=== PATIENT | female | born 1995 | race Caucasian/White ===

== ENCOUNTER 2024-04-03 08:07 | Outpatient (AMB) | payer OTHER, SELFPAY ==
--- NOTE | 2024-04-03 07:57 | MHC.PC.OV ---
Vital Signs 04/03/24 08:19 Height 5 ft 2 in Weight 119 lb 6 oz BMI 21.8 BP 98/64 Blood Pressure Location Rt brachial Position Sitting Respiration 12 Pulse 83 Pulse Source Pulse Oximeter Temp 97.9 F Temp Source Oral Pulse Oximetry (%) 98 Oxygen Delivery Method Room Air Intake Visit Reasons: Establish Care transfer from [facility] Intake Note: New patient visit. Refill on valacyclorvir. Also wants to discuss medication to help focus. Test Lab Technician Required: No Allergies No Known Allergies Allergy (Verified 04/03/24 08:15) Medication List - Last Reconciled 04/03/24 by Blanca Jean Baptiste PA-C lorazepam 1 mg PO DAILY PRN valacyclovir 1,000 mg PO BID Tobacco use date assessed: 04/03/24 Dental Screening Dental Screen Date: 04/03/24 Did you have a dental visit in the last 12 months?: Yes Did you have a dental problem in the last 6 months where you did not have access to dental care?: No Was dental information given to patient?: Patient has dentist HPI Establish Care transfer from [facility] HPI Details Patient is a 29-year-old female with a significant past medical history of cold sores, situational anxiety and ADD presenting today to follow up. She is transferring from [facility]. She was last seen by myself about 6 months ago. Psych: States that she has a history of ADD and was diagnosed in childhood but never tried anything consistently. She states that at 1 point in college she was on Adderall extended release and that was helpful. She states that while she is currently going through her wedding planning and her hectic job she thinks that she would benefit from going back on Adderall. She states that she is getting next year and then would plan to come off of this again. 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 She does get a couple of prescriptions of the lorazepam a year for airplane travel. Her job causes her to travel all over the country. Requests a refill on Valtrex today for her cold sores. 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 1. Little interest or pleasure in doing things: not at all 2. Feeling down, depressed, or hopeless: not at all 3. Trouble falling or staying asleep, or sleeping too much: not at all 4. Feeling tired or having little energy: not at all 5. Poor appetite or overeating: not at all 6. Feeling bad about yourself - or that you are a failure or have let yourself or your family down: not at all 7. Trouble concentrating on things, such as reading the newspaper or watching television: several days 8. Moving or speaking so slowly that other people could have noticed. Or the opposite - being so fidgety or restless that you have been moving around a lot more than usual: not at all 9. Thoughts that you would be better off or of hurting yourself in some way: not at all Total score: 1 Depression Screening Interpretation: Negative Depression Screening Done: Yes 02845 - PHQ-9 Billing: Yes Source: Developed by Drs. Caleb Shipman, Shayna Ochoa, Adrian Nath and colleagues, with an educational carolyn from [employer]. Thrive Questionnaire Date Thrive assessed: 04/03/24 I am a: Patient What is your living situation today?: I have a steady place to live Within the past 12 months, did the food you bought not last and you didn't have the money to get more?: Never true Within the past 12 months, did you worry whether your food would run out before you got money to buy more?: Never true Do you have trouble paying for medicines?: No Do you have trouble getting transportation to medical appointments?: No Do you have trouble paying your heating and electricity bill?: No Do you have trouble taking care of your child, family member or friend?: No Do you have trouble with day-to-day activities such as bathing, preparing meals, shopping, managing finances, etc.?: No Are you currently unemployed and looking for a job?: No Are you interested in more education?: No Please select the resources that you would like help with: None Currently or been in a relationship where the following occur: no concerns reported THRIVE Score: 0 AUDIT C Alcohol Use Questionnaire (AUDIT-C) 1. How often do you have a drink containing alcohol?: 2-4 times a month 2. How many drinks containing alcohol do you have on a typical day when you are drinking?: 1 or 2 3. How often do you have six or more drinks on one occasion?: Never Total Score: 2 AIDA-7 AMB Questionnaire AIDA-7 Date AIDA - 7 assessed: 04/03/24 Feeling nervous, anxious, or on edge: 1 = Several days Not being able to stop or control worryin = Several days Worrying too much about different things: 1 = Several days Trouble relaxin = Several days Being so restless that it is hard to sit still: 0 = Not at all Becoming easily annoyed or irritable: 1 = Several days Feeling afraid as if something awful might happen: 1 = Several days Total AIDA-7 score (0-4 normal; 5-9 mild; 10-14 moderate; 15-21 severe): 6 Source: Developed by Drs. Caleb Shipman, Shayna Ochoa, Adrian Nath and colleagues, with an educational carolyn from [employer]. AIDA-7 Assessment Billing AIDA-7 Assessment Tool: AIDA-7 Assessment 73451 Physical exam (Primary Care) Vital Signs: Last Vital Signs Temp 97.9 F 04/03/24 08:19 Pulse 83 04/03/24 08:19 Resp 12 04/03/24 08:19 BP 98/64 04/03/24 08:19 Pulse Ox 98 04/03/24 08:19 Oxygen Delivery Method Room Air 04/03/24 08:19 BMI result Body Mass Index 21.8 Tobacco/Smoking Status: Tobacco use Status Tobacco use date assessed 04/03/24 04/03/24 07:58 Patient Tobacco Use Status Never used Tobacco 04/03/24 08:23 e-Cigarette/Vaping Use Never Used 04/03/24 08:23 PHQ-9: PHQ-9 Score PHQ-9: Total score 1 04/03/24 08:23 Depression Screening Interpretation: Negative Thrive Assessment: Date of Thrive Assessment Date Thrive assessed 04/03/24 04/03/24 08:23 Currently or been in a relationship where the following occur: no concerns reported Const Orientation/consciousness: patient oriented x3 HENMT Ears: hearing grossly normal bilaterally Neck Thyroid: Thyroid normal Lymphatic: no lymphadenopathy noted Resp Auscultation: clear to auscultation bilaterally Cardio Rate: regular rate Rhythm: regular rhythm Heart sounds: S1 normal heart sound present and S2 normal heart sound present GI Inspection: Yes normal to inspection Palpation (GI): Soft to palpation and Other GI palpation findings present (nontender, no cva tenderness) Auscultation: normoactive bowel sounds Rectal Exam - Female: deferred Skin General skin exam: no rashes or lesions noted Neuro General: patient oriented x3, gait normal and no focal motor deficits Assessment and Plan Assessment & Plan (1) Attention deficit disorder (ADD) in adult: Code(s): F98.8 - Other specified behavioral and emotional disorders with onset usually occurring in childhood and adolescence Plan: We will restart Adderall 10 mg XR. I will have her return in 1 month to be re-evaluated. We did discuss risks and benefits and adverse effects of this medication including palpitations, weight changes, addiction, dependence, and insomnia etc.. (2) Panic attacks: Code(s): F41.0 - Panic disorder [episodic paroxysmal anxiety] Plan: Does not currently need a refill of lorazepam. Last received this about 6 months ago. Plan Reports not having labs for over a year. Labs ordered today. We will follow up pending test results. Patient understands and agrees with the plan. Orders: Orders Lipid Panel Today F41.0 - Panic disorder [episodic paroxysmal anxiety], F98.8 - Other specified behavioral and emotional disorders with onset usually occurring in childhood and adolescence Complete Blood Count Auto Diff Today F41.0 - Panic disorder [episodic paroxysmal anxiety], F98.8 - Other specified behavioral and emotional disorders with onset usually occurring in childhood and adolescence Comprehensive Met. Panel Today F41.0 - Panic disorder [episodic paroxysmal anxiety], F98.8 - Other specified behavioral and emotional disorders with onset usually occurring in childhood and adolescence TSH reflex Free T4 Today F41.0 - Panic disorder [episodic paroxysmal anxiety], F98.8 - Other specified behavioral and emotional disorders with onset usually occurring in childhood and adolescence Vitamin B12 and Folate Today F41.0 - Panic disorder [episodic paroxysmal anxiety], F98.8 - Other specified behavioral and emotional disorders with onset usually occurring in childhood and adolescence Medications: New valacyclovir 2,000 mg (2 x 1 gram) PO BID 1 day PRN 30 tabs 3RF outbreak dextroamphetamine-amphetamine 10 mg ER (Adderall XR) Partial Fill upon patient request. 10 mg PO QAM 28 days 28 caps 0RF Coding Level of Care Code Est Pt Level 4 (89224) Complex EM visit Add On G2211 Diagnoses Attention deficit disorder (ADD) in adult F98.8 Panic attacks F41.0 Additional Codes AIDA-7 Assessment Billing - AIDA-7 Assessment Tool: AIDA-7 Assessment 81544 ([id number])
[2024-04-03 08:19] VITALS: BP 98/64; PULSE 83; RESP 12; TEMP 36.6; O2SAT 98; BMI 21.8
== END 2024-04-03 10:12 | disposition home or self-care (01) ==
PROVIDERS: PCP Physician Assistant; Visit Provider Physician Assistant
DX: F98.8 Other specified behavioral and emotional disorders with onset usually occurring in childhood and adolescence (principal); F41.0 Panic disorder [episodic paroxysmal anxiety]
CPT/HCPCS: 99214; G2211

== ENCOUNTER 2024-07-30 10:06 | Outpatient (AMB) | payer OTHER, SELFPAY ==
--- NOTE | 2024-07-30 10:11 | A.OFFPC_ITS ---
Vital Signs 07/30/24 10:12 Height 5 ft 2 in Weight 110 lb 8 oz BMI 20.2 BP 98/82 Blood Pressure Location Rt brachial Position Sitting Respiration 12 Pulse 92 Pulse Source Pulse Oximeter Temp 97.7 F Temp Source Oral Pulse Oximetry (%) 99 Oxygen Delivery Method Room Air Intake Visit Reasons: black specks on flem Intake Note: Phlegm with black specs that have been ongoing for about a year. Allergies No Known Allergies Allergy (Verified 07/30/24 10:12) Medication List - Last Reconciled 07/30/24 by Blanca Jean Baptsite PA-C lorazepam 1 mg PO DAILY PRN valacyclovir 2,000 mg (2 x 1 gram) PO BID PRN 1 day Tobacco use date assessed: 04/03/24 Dental Screening Dental Screen Date: 04/03/24 HPI black specks on flem HPI Details Patient is a 29-year-old female who presents today with a few complaints. -she has noticed constant postnasal drip for the past year, worse in the last few months feels like she is clearing her throat a lot. Recently she is cleari ng her throat and felt like she had some black flecks in her phlegm. She states that it almost looked like mosquito. No bloody nose, sinus pain or pressure. No fevers or chills. She states that she is not coughing denies any shortness on breath, fevers or chills. She has noticed some lymphadenopathy in her neck that has been going on for the past year and she states that it has been on and off but in the last few months it has been more persistent. The right side is worse than the left. She does at times have a sore throat and feels like there is something there when she swallows. At times she does also endorse some heartburn with this. She has also noticed that she has been belching a lot over the last couple of months. She did try omeprazole for 7 days and that was helpful for some of the belching. It then returned. She tries to be careful with her diet. No pain with eating. No nausea, vomiting, diarrhea or constipation. -she does endorse weight loss but attrib utes this to Adderall. -she denies any night sweats, fatigue, a bdominal pain or weakness. -a few months ago she was started on Add erall as she took this in the past for her ADD but has noticed a decrease in her weight. She states that when she takes Adderall she just does not want to eat. She is wondering if we can switch to the short-acting because it is very helpful for presentations, wedding lluvia nning, her stressful job. 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 1. Little interest or pleasure in doing things: not at all 2. Feeling down, depressed, or hopeless: not at all 3. Trouble falling or staying asleep, or sleeping too much: several days 4. Feeling tired or having little energy: not at all 5. Poor appetite or overeating: several days 6. Feeling bad about yourself - or that you are a failure or have let yourself or your family down: not at all 7. Trouble concentrating on things, such as reading the newspaper or watching television: not at all 8. Moving or speaking so slowly that other people could have noticed. Or the opposite - being so fidgety or restless that you have been moving around a lot more than usual: not at all 9. Thoughts that you would be better off or of hurting yourself in some way: not at all Total score: 2 Source: Developed by Drs. Caleb Shipman, Shayna Ochoa, Adrian Nath and colleagues, with an educational carolyn from [employer]. Thrive Questionnaire Date Thrive assessed: 04/03/24 I am a: Patient What is your living situation today?: I have a steady place to live Within the past 12 months, did the food you bought not last and you didn't have the money to get more?: Never true Within the past 12 months, did you worry whether your food would run out before you got money to buy more?: Never true Do you have trouble paying for medicines?: No Do you have trouble getting transportation to medical appointments?: No Do you have trouble paying your heating and electricity bill?: No Do you have trouble taking care of your child, family member or friend?: No Do you have trouble with day-to-day activities such as bathing, preparing meals, shopping, managing finances, etc.?: No Are you currently unemployed and looking for a job?: No Are you interested in more education?: No Please select the resources that you would like help with: None Currently or been in a relationship where the following occur: No concerns reported THRIVE Score: 0 AUDIT C Alcohol Use Questionnaire (AUDIT-C) 1. How often do you have a drink containing alcohol?: 2-3 times a week 2. How many drinks containing alcohol do you have on a typical day when you are drinking?: 3 or 4 3. How often do you have six or more drinks on one occasion?: Less than monthly Total Score: 5 AIDA-7 AMB Questionnaire AIDA-7 Date AIDA - 7 assessed: 04/03/24 Feeling nervous, anxious, or on edge: 2 = More than half the days Not being able to stop or control worryin = Several days Worrying too much about different things: 1 = Several days Trouble relaxin = Several days Being so restless that it is hard to sit still: 1 = Several days Becoming easily annoyed or irritable: 1 = Several days Feeling afraid as if something awful might happen: 1 = Several days Total AIDA-7 score (0-4 normal; 5-9 mild; 10-14 moderate; 15-21 severe): 8 Source: Developed by Drs. Caleb Shipman, Shayna Ochoa, Adrian Nath and colleagues, with an educational carolyn from [employer]. Physical exam (Primary Care) Vital Signs: Last Vital Signs Temp 97.7 F 07/30/24 10:12 Pulse 92 07/30/24 10:12 Resp 12 07/30/24 10:12 BP 98/82 07/30/24 10:12 Pulse Ox 99 07/30/24 10:12 Oxygen Delivery Method Room Air 07/30/24 10:12 BMI result Body Mass Index 20.2 Tobacco/Smoking Status: Tobacco use Status Tobacco use date assessed 04/03/24 07/30/24 10:16 Patient Tobacco Use Status Never used Tobacco 07/30/24 10:16 e-Cigarette/Vaping Use Never Used 07/30/24 10:16 PHQ-9: PHQ-9 Score PHQ-9: Total score 2 07/30/24 11:53 Thrive Assessment: Date of Thrive Assessment Date Thrive assessed 04/03/24 07/30/24 10:16 Currently or been in a relationship where the following occur: No concerns reported Const Orientation/consciousness: patient oriented x3 HENMT Ears: hearing grossly normal bilaterally Neck Thyroid: Thyroid normal Lymphatic: lymphadenopathy (cervical lymphadenopathy noted) Resp Auscultation: clear to auscultation bilaterally Cardio Rate: regular rate Rhythm: regular rhythm Heart sounds: S1 normal heart sound present and S2 normal heart sound present GI Inspection: Yes normal to inspection Palpation (GI): Soft to palpation and Other GI palpation findings present (nontender, no cva tenderness) Auscultation: normoactive bowel sounds Rectal Exam - Female: deferred Skin General skin exam: no rashes or lesions noted Neuro General: patient oriented x3, gait normal and no focal motor deficits Assessment and Plan Assessment & Plan (1) Persistent generalized lymphadenopathy: Code(s): R59.1 - Generalized enlarged lymph nodes Plan: Ultrasound and labs ordered. We will follow up pending test results. One-month follow-up. Sooner if needed. (2) PND (post-nasal drip): Code(s): R09.82 - Postnasal drip Plan: We will start Zyrtec. Discussed risks and benefits and adverse effects. (3) Globus sensation: Code(s): R09.A2 - Foreign body sensation, throat Plan: As above. H pylori test ordered as well. Pending test results we will start omeprazole. (4) Attention deficit disorder (ADD) in adult: Code(s): F98.8 - Other specified behavioral and emotional disorders with onset usually occurring in childhood and adolescence Plan: d/c Adderall XR. We will use 5 mg short-acting if needed. Short term follow up to recheck weight. Patient understands and agrees with this plan. Orders: Orders US soft tiss head and/or neck Today R09.82 - Postnasal drip, R59.1 - Generalized enlarged lymph nodes H pylori Ag Stool Today R09.82 - Postnasal drip, R09.A2 - Foreign body sensatio n, throat, R59.1 - Generalized enlarged lymph nodes Medications: New dextroamphetamine-amphetamine 5 mg (Adderall) administer doses at least 4-6 hours apart; Partial Fill upon patient request. 5 mg PO BID 30 days 60 tabs 0RF Coding Level of Care Code Est Pt Level 4 (57649) Complex EM visit Add On G2211 Diagnoses Persistent generalized lymphadenopathy R59.1 PND (post-nasal drip) R09.82 Globus sensation R09.A2 Attention deficit disorder (ADD) in adult F98.8
[2024-07-30 10:12] VITALS: BP 98/82; PULSE 92; RESP 12; TEMP 36.5; O2SAT 99; BMI 20.2
== END 2024-07-30 10:52 | disposition home or self-care (01) ==
PROVIDERS: PCP Physician Assistant; Visit Provider Physician Assistant
DX: R59.1 Generalized enlarged lymph nodes (principal); R09.82 Postnasal drip; R09.A2 Foreign body sensation, throat; F98.8 Other specified behavioral and emotional disorders with onset usually occurring in childhood and adolescence
CPT/HCPCS: 99214

== ENCOUNTER 2024-07-30 10:56 | Outpatient (REF) | payer OTHER, SELFPAY ==
[2024-07-30 14:22] LABS: MANUAL DIFF FLAG NO
[2024-07-30 14:24] LABS: Basophils Percent Auto 0.7 % (0-2); Eosinophils Percent Auto 0.5 % (0-4); Hematocrit 40.3 % (37.0-47.0); Hemoglobin 13.7 g/dl (12.0-16.0); Lymphocytes Absolute Auto 2.1 X10*3/uL (1.2-4.9); Lymphocytes Percent Auto 49.3 % (20-40); Mean Corpuscular Hemoglobin 32.5 pg (27.0-33.0); Mean Corpuscular Volume 95.7 fL (80.0-98.0); Mean Platelet Volume 9.8 fL (9.4-12.3); Monocytes Absolute Auto 0.4 X10*3/uL (0.1-1.2); Neutrophils Absolute Auto 1.7 x10*3/uL (2.0-8.3); Neutrophils Percent Auto 40.5 % (45-73); Platelet Count 299 X10*3/uL (160-400); Red Blood Count 4.21 X10*6/uL (4.20-5.50); Red Cell Distribution Width 12.3 % (11.0-16.0); White Blood Count 4.2 X10*3/uL (4.8-10.8)
[2024-07-30 15:23] LABS: Alanine Aminotransferase 13 U/L (0-31); Albumin Level 4.6 g/dL (3.5-5.0); Alkaline Phosphatase 52 U/L (39-117); Anion Gap 13 (12-20); Aspartate Amino Transferase 19 U/L (5-31); Bilirubin Total 0.9 mg/dL (0.0-1.0); Blood Urea Nitrogen 9 mg/dL (9-16); Carbon Dioxide 27 mmol/L (22-29); Chloride 103 mmol/L (96-108); Cholesterol 173 mg/dL (<200); Estimated Glomerular Filt Rate > 60; Glucose Random 93 mg/dL (60-115); HDL Cholesterol 87 mg/dL (>40); LDL Cholesterol Calculated 79 mg/dL (<100); Potassium 4.1 mmol/L (3.3-5.1); Sodium 139 mmol/L (135-145); Total Protein 7.7 g/dL (6.5-8.0); Triglycerides 35 mg/dL (<150)
[2024-07-30 15:25] LABS: TSH reflex Free T4 1.76 uIU/mL (0.32-4.0)
[2024-07-30 15:30] LABS: Folate 13.2 ng/mL (> or = 4.0); Vitamin B12 543 pg/mL (200-900)
== END 2024-07-30 10:57 | disposition home or self-care (01) ==
LOC: HO.WFDLDS 10:56
PROVIDERS: Visit Provider Physician Assistant
DX: F41.0 Panic disorder [episodic paroxysmal anxiety] (principal); F98.8 Other specified behavioral and emotional disorders with onset usually occurring in childhood and adolescence; R59.1 Generalized enlarged lymph nodes; R09.A2 Foreign body sensation, throat; R09.82 Postnasal drip
CPT/HCPCS: 36415; 80053; 80061; 82607; 82746; 84443; 85025; 87338

== ENCOUNTER 2024-09-03 15:44 | Outpatient (AMB) | payer OTHER, SELFPAY ==
--- NOTE | 2024-09-03 15:48 | A.OFFPC_ITS ---
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 Psych: At our last visit she was started on Adderall 5 mg twice a day. She states that she felt like the 5 mg is too ineffective so has been taking 10 mg twice a day which is effective but does seem to wear off quickly. She is wondering if we could go up on a little bit on this dosage. She was previously on the extended-release Adderall but that caused her to have difficulty eating. With the immediate release she has not had any issues. She is up 3 lb. 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 Current occupational exposures/hazards: No Cognitive needs: No Hearing needs: No Vision needs: No Questionnaire Thrive Questionnaire Date Thrive assessed: 07/30/24 I am a: Patient What is your living situation today?: I have a steady place to live Within the past 12 months, did the food you bought not last and you didn't have the money to get more?: Never true Within the past 12 months, did you worry whether your food would run out before you got money to buy more?: Never true Do you have trouble paying for medicines?: No Do you have trouble getting transportation to medical appointments?: No Do you have trouble paying your heating and electricity bill?: No Do you have trouble taking care of your child, family member or friend?: No Do you have trouble with day-to-day activities such as bathing, preparing meals, shopping, managing finances, etc.?: No Are you currently unemployed and looking for a job?: No Are you interested in more education?: No Please select the resources that you would like help with: None Currently or been in a relationship where the following occur: No concerns reported THRIVE Score: 0 AIDA-7 AMB Questionnaire AIDA-7 Date AIDA - 7 assessed: 04/03/24 Source: Developed by Drs. Caleb Shipman, Shayna Ochoa, Adrian Nath and colleagues, with an educational carolyn from [employer]. Physical exam (Primary Care) Vital Signs: Last Vital Signs Pulse 86 09/03/24 15:51 Resp 12 09/03/24 15:51 BP 108/58 L 09/03/24 15:51 Pulse Ox 99 09/03/24 15:51 Oxygen Delivery Method Room Air 09/03/24 15:51 BMI result Body Mass Index 20.7 Tobacco/Smoking Status: Tobacco use Status Tobacco use date assessed 04/03/24 09/03/24 15:49 Patient Tobacco Use Status Never used Tobacco 09/03/24 15:49 e-Cigarette/Vaping Use Never Used 09/03/24 15:49 Thrive Assessment: Date of Thrive Assessment Date Thrive assessed 07/30/24 09/03/24 15:49 Currently or been in a relationship where the following occur: No concerns reported Const Orientation/consciousness: patient oriented x3 HENMT Ears: hearing grossly normal bilaterally Neck Thyroid: Thyroid normal Lymphatic: no lymphadenopathy noted Resp Auscultation: clear to auscultation bilaterally Cardio Rate: regular rate Rhythm: regular rhythm Heart sounds: S1 normal heart sound present and S2 normal heart sound present GI Inspection: Yes normal to inspection Palpation (GI): Soft to palpation and Other GI palpation findings present (nonte nder, no cva tenderness) Auscultation: normoactive bowel sounds Rectal Exam - Female: deferred Skin General skin exam: no rashes or lesions noted Neuro General: patient oriented x3, gait normal and no focal motor deficits Results Reviewed Results Reviewed: Laboratory Tests 07/30/24 10:59 Sodium 139 Potassium 4.1 Chloride 103 Carbon Dioxide 27 Anion Gap 13 BUN 9 Creatinine 0.75 Estimated GFR > 60 Random Glucose 93 AST 19 ALT 13 Triglycerides 35 Cholesterol 173 LDL Cholesterol, Calc 79 HDL Cholesterol 87 Vitamin B12 543 Folate 13.2 TSH 1.76 Coding Level of Care Code Est Pt Level 3 (97598) Diagnoses Attention deficit disorder (ADD) in adult F98.8 Assessment & Plan Assessment & Plan (1) Attention deficit disorder (ADD) in adult: Code(s): F98.8 - Other specified behavioral and emotional disorders with onset usually occurring in childhood and adolescence Category: Medical Plan: We will try Adderall 12.5 mg twice a day. Advised short term follow up in 3-4 months. Sooner if needed. Patient understands and agrees with the plan. Medications: New dextroamphetamine-amphetamine 12.5 mg (Adderall) administer doses at least 4-6 hours apart; Partial Fill upon patient request. 12.5 mg PO BID 30 days 60 tabs 0RF
[2024-09-03 15:51] VITALS: BP 108/58; PULSE 86; RESP 12; O2SAT 99; BMI 20.7
== END 2024-09-03 17:00 | disposition home or self-care (01) ==
PROVIDERS: PCP Physician Assistant; Visit Provider Physician Assistant
DX: F98.8 Other specified behavioral and emotional disorders with onset usually occurring in childhood and adolescence (principal)

== ENCOUNTER → 2024-09-03 15:44 | Outpatient (BNVA) | payer OTHER, SELFPAY | PROVIDERS: PCP Physician Assistant; Visit Provider Physician Assistant ==

== ENCOUNTER 2025-05-14 13:10 | Outpatient (AMB) | payer OTHER, SELFPAY ==
--- NOTE | 2025-05-14 13:11 | MHC.PC.OV ---
Vital Signs 05/14/25 13:17 Height 5 ft 2 in Weight 111 lb BMI 20.3 BP 98/78 Blood Pressure Location Rt brachial Position Sitting Respiration 12 Pulse 78 Pulse Source Pulse Oximeter Temp 98.3 F Temp Source Oral Pulse Oximetry (%) 98 Oxygen Delivery Method Room Air Intake Visit Reasons: not feeling well Intake Note: Congestion, throat and neck pain, green phlem, fever, swollen lymph nodes in armpits. 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 Allergies No Known Allergies Allergy (Verified 05/14/25 13:15) Medication List - Last Reconciled 05/14/25 by Blanca Jean Baptiste PA-C dextroamphetamine-amphetamine 12.5 mg (Adderall) 12.5 mg PO BID 30 days lorazepam 1 mg PO DAILY PRN omeprazole 20 mg PO DAILY propranolol 10 mg PO BID PRN 30 days trazodone 50 mg PO BEDTIME PRN valacyclovir 2,000 mg (2 x 1 gram) PO BID PRN 1 day Tobacco use date assessed: 05/14/25 Dental Screening Dental Screen Date: 05/14/25 Did you have a dental visit in the last 12 months?: No Did you have a dental problem in the last 6 months where you did not have access to dental care?: No Was dental information given to patient?: Patient has dentist HPI not feeling well HPI Details Patient is a 30-year-old female who presents today with not feeling well. She says that she started to get sick a couple of nights ago with fever, body aches, congestion, sore throat, swollen lymph nodes and intermittent nausea. She has been using a right going to oil. She has also tried NyQuil, Benadryl and no significant improvement of symptoms. She was on a bachelor at and everyone is sick with similar symptoms. 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 How often do you have a drink containing alcohol?: Monthly or less 2. How many drinks containing alcohol do you have on a typical day when you are drinking?: 1 or 2 3. How often do you have six or more drinks on one occasion?: Never Total Score: 1 AIDA-7 AMB Questionnaire AIDA-7 Date AIDA - 7 assessed: 04/03/24 Source: Developed by Drs. Caleb Shipman, Shayna Ochoa, Adrian Nath and colleagues, with an educational carolyn from [employer]. Physical exam (Primary Care) Vital Signs: Last Vital Signs Temp 98.3 F 05/14/25 13:17 Pulse 78 05/14/25 13:17 Resp 12 05/14/25 13:17 BP 98/78 05/14/25 13:17 Pulse Ox 98 05/14/25 13:17 Oxygen Delivery Method Room Air 05/14/25 13:17 BMI result Body Mass Index 20.3 Tobacco/Smoking Status: Tobacco use Status Tobacco use date assessed 05/14/25 05/14/25 13:20 Patient Tobacco Use Status Never used Tobacco 05/14/25 13:16 e-Cigarette/Vaping Use Never Used 05/14/25 13:16 Thrive Assessment: Date of Thrive Assessment Date Thrive assessed 07/30/24 05/14/25 13:13 Const Orientation/consciousness: patient oriented x3 HENMT Other: TMs dome-shaped a small air-fluid levels. Nasal mucosa erythematous. No drainage noted. Slight maxillary sinus tenderness present. Cervical lymphadenopathy noted. Oral mucosa moist. Posterior oropharynx is mildly erythematous. No exudates. Ears: hearing grossly normal bilaterally Neck Thyroid: Thyroid normal Lymphatic: no lymphadenopathy noted Resp Auscultation: clear to auscultation bilaterally Cardio Rate: regular rate Rhythm: regular rhythm Heart sounds: S1 normal heart sound present and S2 normal heart sound present GI Inspection: Yes normal to inspection Palpation (GI): Soft to palpation and Other GI palpation findings present (nontender, no cva tenderness) Auscultation: normoactive bowel sounds Rectal Exam - Female: deferred Skin General skin exam: no rashes or lesions noted Neuro General: patient oriented x3, gait normal and no focal motor deficits Coding Level of Care Code Est Pt Level 3 (13725) Diagnoses Viral upper respiratory tract infection J06.9 Assessment & Plan Assessment & Plan (1) Viral upper respiratory tract infection: Code(s): J06.9 - Acute upper respiratory infection, unspecified Plan: Rapid strep negative. COVID, flu testing ordered. We will follow up pending test results. Discussed with patient that symptoms and physical exam are consistent with a viral etiology. Supportive measures discussed. Orders: Orders SARS-CoV2/FLU/RSV Today J06.9 - Acute upper respiratory infection, unspecified, R09.89 - Other specified symptoms and signs involving the circulatory and respiratory systems Medications: New ondansetron HCl 4 mg PO Q8H PRN 30 tabs 0RF nausea and vomiting 10 days
[2025-05-14 13:17] VITALS: BP 98/78; PULSE 78; RESP 12; TEMP 36.8; O2SAT 98; BMI 20.3
--- OUTSIDE RECORDS SUMMARY | 2025-05-14 15:47 | XMS_ITS | Data Portability ---
Author Organization [facility], [address] Address [address] [place] [address] Assessment No assessment recorded. Plan of Treatment Reminders Order Date Submit Date Provider Last Modified By Organization Details Last Modified Time Details Appointments None recorded. Lab None recorded. Referral None recorded. Procedures None recorded. Surgeries None recorded. Imaging XR, wrist, 3 or more view - overuse injury to left wrist . need to rule out acute fracture. [id number] [email or web address] [facility], [address] [place], [address], 4 18:31:57 Medication Orders None recorded. Patient TargetsNo targets recorded. Patient Instructions Encounter Date Encounter Id Patient Instructions Last Modified By Organization Details Last Modified Time 12/15/2023 [id number] Your Care Instructions Your wrist hurts because you have stretched or torn ligaments, which connect the bones in your wrist. Wrist sprains usually take from 2 to 10 weeks to heal, but some take longer. Usually, the more pain you have, the more severe your wrist sprain is and the longer it will take to heal. You can heal faster and regain strength in your wrist with good home treatment. Follow-up care is a nation part of your treatment and safety. Be sure to make and go to all appointments, and call your doctor or nurse advice line (385 in most provinces and territories) if you are having problems. It's also a good idea to know your test results and keep a list of the medicines you take. How can you care for yourself at home? Prop up your arm on a pillow when you ice it or anytime you sit or lie down for the next 3 days. Try to keep your wrist above the level of your heart. This will help reduce swelling. Put ice or cold packs on your wrist for 10 to 20 minutes at a time. Try to do this every 1 to 2 hours for the next 3 days (when you are awake) or until the swelling goes down. Put a thin cloth between the ice pack and your skin. After 2 or 3 days, if your swelling is gone, apply a heating pad set on low or a warm cloth to your wrist. This helps keep your wrist flexible. Some doctors suggest that you go back and forth between hot and cold. If you have an elastic bandage, keep it on for the next 24 to 36 hours. The bandage should be snug but not so tight that it causes numbness or tingling. To re-wrap the wrist, wrap the bandage around the hand a few times, beginning at the fingers. Then wrap it around the hand between the thumb and index finger, ending by circling the wrist several times. If your doctor gave you a splint or brace, wear it as directed to protect your wrist until it has healed. Take pain medicines exactly as directed. If the doctor gave you a prescription medicine for pain, take it as prescribed. If you are not taking a prescription pain medicine, ask your doctor if you can take an qadm-yjx-gfwvqjw medicine. Try not to use your injured wrist and hand. When should you call for help? Call your doctor or nurse advice line now or seek immediate medical care if: Your hand or fingers are cool or pale or change colour. Watch closely for changes in your health, and be sure to contact your doctor or nurse advice line if: Your pain gets worse. Your wrist has not improved after 1 week. [email or web address] Not available 12/15/2023 11:04:48 Reason for Referral None Reported. Problems No Known Problems Medical Equipment None Reported. Allergies No known drug allergies Medications Not known to be on any medication Vitals Date Recorded Body height Body weight Body mass index (BMI) Oxygen saturation Oxygen saturation in Arterial blood by Pulse oximetry Heart rate Respiratory rate Body temperature Systolic blood pressure Diastolic blood pressure Provider Name and Address Organization Details Last Updated DateTime 4 157.48 cm 54271.3 5 g 20.5 kg/m2 97 % 97 % 87 /min 18 /min 98.1 [degF] 110 mm[Hg] 66 mm[Hg] Radha GILBERT - [facility] 10:43:29 Social History Question Answer Notes LastModified by Organizat ion Details LastModified Time Have You Had A Flu Shot This Season? No [email or web address] Information not available 12/15/2023 Have You Had Direct Contact, Or Contact During Intimacy, With Monkeypox Rash, Scabs, Or Body Fluids From A Person With Monkeypox? No [email or web address] Information not available 12/15/2023 What Was The Date Of Your Most Recent Tobacco Screening? 12/15/2023 [email or web address] Information not available 12/15/2023 Have You Recently Traveled Abroad? No [email or web address] Information not available 12/15/2023 Sex: Unknown Functional Status Question Answer Note LastModified by Organizat ion Details LastModified Time Do you use any illicit or recreational drugs? No [email or web address] Information not available 12/15/2023 Do you or have you ever used any other forms of tobacco or nicotine? No [email or web address] Information not available 12/15/2023 What is your level of alcohol consumption? Occasional [email or web address] Information not available 12/15/2023 Mental Status None recorded. Family History Nothing Reported. Medical History No medical history recorded. Gynecological History Statement/Question Response Date of LMP 12/15/2023 Is there any chance of ? No Obstetrics History GPAL:G 0 P 0 0 0 0 Past Encounters Encounter ID Performer Location Encounter Start Date Encounter Closed Date Diagnosis/Indication Diagnosis SNOMED-CT Code Diagnosis ICD10 Code Diagnosis Note [id number] [facility] [address] [address] 02/06/2021 13:13:08 02/06/2021 14:39:49 [id number] [facility] [address] [address] [place] [address] 03/14/2021 08:22:29 03/14/2021 08:53:25 [id number] [address] [address] [address] 09/14/2020 09:47:33 09/14/2020 10:33:50 [id number] [address] [facility] [address] 01/15/2021 08:21:59 01/15/2021 09:09:13 [id number] [address] [place] [address] 01/01/2017 15:02:29 01/01/2017 15:17:50 [id number] [address] [place] [address] 03/05/2021 08:17:09 03/05/2021 09:35:30 [id number] [address] [place] [address] 08/06/2016 12:54:37 08/06/2016 13:19:08 [id number] [address] [place] [address] 02/22/2021 16:41:21 02/22/2021 18:14:38 [id number] [address] [place] [address] 05/31/2021 15:34:12 05/31/2021 16:32:48 [id number] [address] [place] [address] 01/25/2021 09:45:25 01/25/2021 10:46:05 [id number] [address] [place] [address] 02/03/2018 12:43:18 02/03/2018 14:44:11 [id number] [address] [place] [id number] 06/06/2018 11:04:09 06/06/2018 11:37:54 [id number] [address] [place] [id number] 08/05/2020 17:29:37 08/05/2020 20:24:07 [id number] [address] [address] [place] [address] 01/05/2017 12:31:27 01/05/2017 13:34:02 [id number] [address] [address] [place] [id number] 12/27/2018 14:04:01 12/27/2018 15:17:51 [id number] [address] [address] [place] [id number] 02/21/2022 08:54:24 02/21/2022 10:42:42 [id number] [place] [address] [place] [address] 12/15/2023 10:29:04 12/15/2023 11:14:16 Sprain of left wrist [id number] S63.502A Health Concerns Section Related Observation LastModified by Organization Detai ls LastModified Time None Recorded Concern Status LastModified by Organization Details LastModified Time None Recorded Advance Directives Directive None Recorded Payers Insurance Date Sequence Insurance Name Policy Number Policy Cheng Covered Member ID Cheng Member ID Guarantor Name 12/25/2023 1 [employer] - ALLIED - [employer] Keren Eric [id number] Keren Eric Notes Date Note Type Note Provider Name and Address Organization Details Recorded Time 12/15/2023 text/html Wrist/Hand Injur y UCReported bypatient.source of patient informationpatient; Patient arrived [facility] ambulatory; rowing boat and now develop pain in her left wrist . pain more pronounce while bearing weight on it and twisting movements x 1 week. Location:left; wrist Associated Symptoms:no redness; no ecchymosis; no fever;pain Severity:mild Duration:7 days Context:sports injury; overuse Hand Dominance:right Aggravating Factors:lifting; carrying; gripping; ROM Previous InjuryNo prior injury to affected body part Previous Treatmentnone Prior Imaging:none Harvinder Bains NP [address] [place], [address], [place] - [facility] 12/16/2023 08:47:17 OBGyn Episode No OBEpisode recorded.
== END 2025-05-14 17:09 | disposition home or self-care (01) ==
LOC: HO.HMCFM 13:10
PROVIDERS: PCP Physician Assistant; Visit Provider Physician Assistant
DX: J06.9 Acute upper respiratory infection, unspecified (principal); J02.9 Acute pharyngitis, unspecified

== ENCOUNTER 2025-05-14 13:10 | Outpatient (REF) | payer OTHER, SELFPAY ==
[2025-05-14 18:20] LABS: Influenza A PCR NEGATIVE (Negative); Influenza B PCR NEGATIVE (Negative); Resp Syncy Virus RNA Qual PCR NEGATIVE (Negative); SARS COV2 PCR INHOUSE NEGATIVE (Negative)
== END 2025-05-14 13:11 | disposition home or self-care (01) ==
LOC: HO.LNP 13:10
PROVIDERS: PCP Physician Assistant; Visit Provider Physician Assistant
DX: J06.9 Acute upper respiratory infection, unspecified (principal); R09.89 Other specified symptoms and signs involving the circulatory and respiratory systems
CPT/HCPCS: 0241U; 87880